=== PATIENT | female | born 1950 | race Caucasian/White ===

== ENCOUNTER 2018-10-23 11:34 | Day surgery (SDC) | payer MEDICARE ==
[~2018-10-23] VITALS: Ht 161.3 cm; Wt 45.3 kg
[2018-10-23 12:22] VITALS: BP 148/93
[2018-10-23] MEDS ORDERED: LACTATED RINGERS 1,000 ML IV SCH (12:27)
[2018-10-23] MEDS ORDERED: TRIA1TAB3 PO (12:30)
[2018-10-23] MEDS ORDERED: METO25TA35 PO (12:30)
[2018-10-23] MEDS ORDERED: SIMV20TA3 PO (12:30)
[2018-10-23] MEDS ORDERED: PROPOFOL 10 MG/ML, 20ML ONE (14:33)
[2018-10-23] MEDS ORDERED: PHENYLEPHRINE 10 MG/ML ONE (14:33)
[2018-10-23] MEDS ORDERED: SUCCINYLCHOLINE 20 MG/ML, 10ML ONE (14:33)
[2018-10-23] MEDS ORDERED: DEXAMETHASONE 4 MG/ML, 1ML ONE (14:33)
[2018-10-23] MEDS ORDERED: ONDANSETRON 2MG/ML, 2ML ONE (14:33)
[2018-10-23] MEDS ORDERED: HYDROmorphone 2 MG/ML, 1ML IVPush PRN (17:30)
[2018-10-23] MEDS ORDERED: FENTANYL PF 100 MCG/2ML IV PRN (17:30)
[2018-10-23] MEDS ORDERED: OXYcodone 5 MG/5 ML ORAL.SOL UDC PO PRN (17:30)
[2018-10-23] MEDS ORDERED: hydrALAzine 20 MG/ML, 1ML IV PRN (17:30)
[2018-10-23] MEDS ORDERED: HALOPERIDOL 5 MG/ML IV PRN (17:30)
[2018-10-23] MEDS ORDERED: PROMETHAZINE 25 MG/ML, 1ML IV PRN (17:30)
== END 2018-10-23 18:30 | disposition home or self-care (01) ==
LOC: OUT 11:34
PROVIDERS: ATTEND Internal Medicine Geriatric Medicine
DX: C22.1 Intrahepatic bile duct carcinoma (principal); K83.1 Obstruction of bile duct; K83.8 Other specified diseases of biliary tract; E78.5 Hyperlipidemia, unspecified; I10 Essential (primary) hypertension; Z72.89 Other problems related to lifestyle; Z87.891 Personal history of nicotine dependence; Z88.6 Allergy status to analgesic agent; Z98.890 Other specified postprocedural states
CPT/HCPCS: 43237; 43261; 43274; 74328; 88112; 88172; 88173; 88305; 88333; 88334; 93005; C1769; C1894; C2625; J0330; J1100; J2370; J2405; J2704

== ENCOUNTER 2018-10-27 11:28 | Inpatient (IN) | payer MEDICARE ==
[~2018-10-27] VITALS: Ht 154.9 cm; Wt 52.7 kg
[~2018-10-27 11:28] MED LIST: FENTANYL PF 100 MCG/2ML ONE; LIDOCAINE-MPF 2% ,5ML ONE; MEPERIDINE/PF 50 MG/ML ONE; METO25TA35 PO; MIDAZOLAM 1 MG/ML, 2ML ONE; PROPOFOL 10 MG/ML, 20ML ONE; SIMV20TA3 PO; SUCCINYLCHOLINE 20 MG/ML, 10ML ONE; TRIA1TAB3 PO
[2018-10-27] MEDS ORDERED: ONDANSETRON 2MG/ML, 2ML IVPush ONE (12:00)
[2018-10-27] MEDS ORDERED: SODIUM CHLORIDE FLUSH 10ML SYR IVF ONE (12:00)
[2018-10-27] MEDS ORDERED: SODIUM CHLORIDE 0.9% 1,000ML IVBOLUS ONE (12:00)
[2018-10-27 12:09] LABS: ALANINE AMINOTRANSFERASE 456 U/L (12-78); ALBUMIN 3.5 g/dL (3.4-5.0); ANION GAP 10 mmol/L (5-15); CALCIUM 9.9 mg/dL (8.5-10.1); CHLORIDE 95 mmol/L (98-107); CREATININE 1.12 mg/dL (0.55-1.02)
[2018-10-27 12:11] LABS: ALKALINE PHOSPHATASE 482 U/L (45-117); BILIRUBIN,TOTAL 1.1 mg/dL (0.2-1.0); TOTAL PROTEIN 7.7 g/dL (6.4-8.2)
[2018-10-27 12:23] LABS: BASOPHILS % (AUTO) 0 % (0-1); EOSINOPHILS # (AUTO) 0.02 x10^3/uL (0-0.4); EOSINOPHILS % (AUTO) 0 % (1-7); LYMPHOCYTES # (AUTO) 0.84 x10^3/uL (1-3.4); LYMPHOCYTES % (AUTO) 7 % (22-44); MD NO; MEAN CORPUSCULAR HEMOGLOBIN 30.5 pg (27.0-34.8); MEAN CORPUSCULAR HGB CONC 34.2 g/dL (32.4-35.8); MEAN CORPUSCULAR VOLUME 89.3 fL (80-100); MEAN PLATELET VOLUME 9.6 fL (7.4-10.4); MONOCYTES # (AUTO) 0.87 x10^3/uL (0.2-0.8); MONOCYTES % (AUTO) 7 % (2-9); NEUTROPHILS # (AUTO) 10.96 x10^3/uL (1.8-6.8); NEUTROPHILS % (AUTO) 86 % (42-75); PLATELET COUNT 324 x10^3/uL (130-400); RED BLOOD COUNT 4.54 x10^6/uL (3.82-5.3); RED CELL DISTRIBUTION WIDTH 14.7 % (9.6-15.2)
[2018-10-27] MEDS ORDERED: NS + 40MEQ KCL 1,000 ML IV ONE ×2 (12:31→12:53)
--- NOTE | 2018-10-27 12:45 | NUR ---
PT ARRIVES TO ED WITH EPIGASTRIC AND PERIUMBILICUS PAIN. PT REPORTS THAT HER APPETITIE HAS BEEN DOWN FOR 4 DAYS. PT REPORTS SOME WIEGHT LOSS PRESENT BUT UNSURE OF [place]. PT DENIES ANY ANGELIKA OR TARRY STOOLS. NO EMESIS. PT IS TENDER TO ABD PALPATION. RECENTLY HAS A CBD STENT FOR POSSIBLE CANCEROUS MASS. PT VITALS ARE STABLE OTHERWISE. RESTING IN [facility] AT THIS TIME AWAITING FURTHER ORDERS.
--- NOTE | 2018-10-27 13:05 | NUR ---
PIV PLACED ON BI-FUSE FOR NS BOLUS AND NSK+.
--- NOTE | 2018-10-27 13:37 | NUR ---
PT GIVEN WARM BLANKET FOR COMFORT.
--- NOTE | 2018-10-27 14:29 | NUR ---
REPORT CALLED TO [facility].
[2018-10-27] MEDS ORDERED: ACETAMINOPHEN 325 MG TABLET PO PRN (14:30)
[2018-10-27] MEDS ORDERED: morphine SULFATE 10 MG/ML, 1ML IVPush PRN (14:30)
[2018-10-27] MEDS ORDERED: LABETALOL 5MG/ML, 20ML IVPush PRN (14:30)
[2018-10-27] MEDS ORDERED: ONDANSETRON 2MG/ML, 2ML IVPush PRN (14:30)
[2018-10-27] MEDS ORDERED: ONDANSETRON ODT 4 MG PO PRN (14:30)
[2018-10-27 15:42] VITALS: BP 150/81
[2018-10-27 15:48] VITALS: BP 150/81
[2018-10-27] MEDS: CEFOTETAN PMX 2GM/50ML 50 ML IV SCH (16:38)
[2018-10-27] MEDS: NS + 20MEQ KCL 1,000 ML IV SCH (16:38)
[2018-10-27 19:45] VITALS: BP 151/77
[2018-10-27] MEDS: METOPROLOL TARTRATE 25 MG TABLET PO SCH (20:26)
[2018-10-27] MEDS: TEMAZEPAM 15 MG CAPSULE PO PRN (20:31)
[2018-10-27] MEDS: FAMOTIDINE 20 MG/2 ML IVPush SCH (20:38)
[2018-10-28 00:04] VITALS: BP 123/76
[2018-10-28] MEDS: NS + 20MEQ KCL 1,000 ML IV SCH ×3 (02:12→23:25)
[2018-10-28] MEDS: CEFOTETAN PMX 2GM/50ML 50 ML IV SCH ×2 (03:54→15:58)
[2018-10-28 05:18] LABS: BASOPHILS # (AUTO) 0.05 x10^3/uL (0-0.1); BASOPHILS % (AUTO) 1 % (0-1); EOSINOPHILS # (AUTO) 0.13 x10^3/uL (0-0.4); EOSINOPHILS % (AUTO) 2 % (1-7); LYMPHOCYTES # (AUTO) 1.37 x10^3/uL (1-3.4); LYMPHOCYTES % (AUTO) 20 % (22-44); MD NO; MEAN CORPUSCULAR HEMOGLOBIN 30.9 pg (27.0-34.8); MEAN CORPUSCULAR HGB CONC 34.3 g/dL (32.4-35.8); MEAN CORPUSCULAR VOLUME 90.1 fL (80-100); MEAN PLATELET VOLUME 9.4 fL (7.4-10.4); MONOCYTES # (AUTO) 0.62 x10^3/uL (0.2-0.8); MONOCYTES % (AUTO) 9 % (2-9); NEUTROPHILS # (AUTO) 4.61 x10^3/uL (1.8-6.8); NEUTROPHILS % (AUTO) 68 % (42-75); PLATELET COUNT 231 x10^3/uL (130-400); RED BLOOD COUNT 3.43 x10^6/uL (3.82-5.3)
[2018-10-28 05:25] LABS: ALBUMIN 2.4 g/dL (3.4-5.0); ANION GAP 9 mmol/L (5-15); CALCIUM 8.7 mg/dL (8.5-10.1); CHLORIDE 109 mmol/L (98-107)
[2018-10-28 05:29] LABS: HEMOGLOBIN A1C 5.8 % (4.2-6.3)
[2018-10-28 05:30] LABS: ALANINE AMINOTRANSFERASE 233 U/L (12-78); ALKALINE PHOSPHATASE 303 U/L (45-117); BILIRUBIN,TOTAL 0.5 mg/dL (0.2-1.0); CREATININE 1.62 mg/dL (0.55-1.02); TOTAL PROTEIN 5.5 g/dL (6.4-8.2)
[2018-10-28 06:40] VITALS: BP 148/70
[2018-10-28] MEDS: FAMOTIDINE 20 MG/2 ML IVPush SCH ×2 (08:53→20:08)
[2018-10-28] MEDS: METOPROLOL TARTRATE 25 MG TABLET PO SCH ×2 (08:53→20:04)
[2018-10-28] MEDS: NEUTRA PHOS K 250 MG TABLET PO SCH ×2 (09:50→20:04)
[2018-10-28 12:33] VITALS: BP 143/85
[2018-10-28 14:56] LABS: MICROSCOPIC NOT IND
[2018-10-28 15:00] LABS: CULTURE INDICATED? NO
[2018-10-28 18:35] VITALS: BP 152/73
[2018-10-28] MEDS: TEMAZEPAM 15 MG CAPSULE PO PRN (20:08)
[2018-10-29 01:09] VITALS: BP 146/68
[2018-10-29] MEDS: CEFOTETAN PMX 2GM/50ML 50 ML IV SCH ×2 (03:50→15:51)
[2018-10-29 05:58] LABS: BASOPHILS # (AUTO) 0.06 x10^3/uL (0-0.1); BASOPHILS % (AUTO) 1 % (0-1); EOSINOPHILS # (AUTO) 0.19 x10^3/uL (0-0.4); EOSINOPHILS % (AUTO) 3 % (1-7); LYMPHOCYTES # (AUTO) 1.43 x10^3/uL (1-3.4); LYMPHOCYTES % (AUTO) 24 % (22-44); MD NO; MEAN CORPUSCULAR HEMOGLOBIN 30.1 pg (27.0-34.8); MEAN CORPUSCULAR HGB CONC 33.2 g/dL (32.4-35.8); MEAN CORPUSCULAR VOLUME 90.8 fL (80-100); MEAN PLATELET VOLUME 9.5 fL (7.4-10.4); MONOCYTES # (AUTO) 0.61 x10^3/uL (0.2-0.8); MONOCYTES % (AUTO) 10 % (2-9); NEUTROPHILS # (AUTO) 3.55 x10^3/uL (1.8-6.8); NEUTROPHILS % (AUTO) 61 % (42-75); PLATELET COUNT 233 x10^3/uL (130-400); RED BLOOD COUNT 3.48 x10^6/uL (3.82-5.3); RED CELL DISTRIBUTION WIDTH 15.2 % (9.6-15.2)
[2018-10-29 06:12] LABS: ALBUMIN 2.3 g/dL (3.4-5.0); ANION GAP 7 mmol/L (5-15); CALCIUM 8.2 mg/dL (8.5-10.1); CHLORIDE 112 mmol/L (98-107)
[2018-10-29 06:15] LABS: ALANINE AMINOTRANSFERASE 166 U/L (12-78); ALKALINE PHOSPHATASE 263 U/L (45-117); BILIRUBIN,TOTAL 0.8 mg/dL (0.2-1.0); CREATININE 1.54 mg/dL (0.55-1.02); TOTAL PROTEIN 5.3 g/dL (6.4-8.2)
[2018-10-29 06:29] VITALS: BP 145/81
[2018-10-29] MEDS: NEUTRA PHOS K 250 MG TABLET PO SCH ×2 (08:35→20:08)
[2018-10-29] MEDS: METOPROLOL TARTRATE 25 MG TABLET PO SCH ×2 (08:36→20:08)
[2018-10-29] MEDS: NS + 20MEQ KCL 1,000 ML IV SCH ×2 (10:54→20:09)
[2018-10-29 12:02] VITALS: BP 145/78
[2018-10-29 19:30] VITALS: BP 146/74
[2018-10-29] MEDS: FAMOTIDINE 20 MG/2 ML IVPush SCH (20:08)
[2018-10-29] MEDS: TEMAZEPAM 15 MG CAPSULE PO PRN (20:08)
[2018-10-30 01:47] VITALS: BP 148/78
[2018-10-30] MEDS: CEFOTETAN PMX 2GM/50ML 50 ML IV SCH (03:36)
[2018-10-30 06:25] VITALS: BP 164/90
[2018-10-30] MEDS: NEUTRA PHOS K 250 MG TABLET PO SCH ×2 (07:00→19:52)
[2018-10-30] MEDS: NS + 20MEQ KCL 1,000 ML IV SCH (07:53)
[2018-10-30 07:59] VITALS: BP 168/90
[2018-10-30] MEDS ORDERED: ACETAMINOPHEN 325 MG TABLET PO PRN (08:00)
[2018-10-30] MEDS ORDERED: FENTANYL PF 100 MCG/2ML ONE (10:48)
[2018-10-30] MEDS ORDERED: MIDAZOLAM 1 MG/ML, 2ML ONE (11:26)
[2018-10-30] MEDS ORDERED: FENTANYL PF 250 MCG/5ML ONE (11:27)
[2018-10-30] MEDS ORDERED: ONDANSETRON 2MG/ML, 2ML ONE (12:02)
[2018-10-30] MEDS ORDERED: DEXAMETHASONE 4 MG/ML, 1ML ONE (12:02)
[2018-10-30] MEDS ORDERED: METOPROLOL 1 MG/ML, 5ML IV PRN (13:00)
[2018-10-30] MEDS ORDERED: MEPERIDINE/PF 25MG/0.5ML IVPush PRN (13:00)
[2018-10-30] MEDS ORDERED: OXYcodone 5 MG/5 ML ORAL.SOL UDC PO PRN (13:00)
[2018-10-30] MEDS ORDERED: MIDAZOLAM 1 MG/ML, 2ML IV PRN (13:00)
[2018-10-30] MEDS ORDERED: FENTANYL PF 100 MCG/2ML IV PRN (13:00)
[2018-10-30] MEDS ORDERED: PROMETHAZINE 25 MG/ML, 1ML IV PRN (13:00)
[2018-10-30] MEDS ORDERED: ONDANSETRON 2MG/ML, 2ML IV PRN (13:00)
[2018-10-30] MEDS ORDERED: hydrALAzine 20 MG/ML, 1ML IV PRN (13:00)
[2018-10-30] MEDS ORDERED: ALBUTEROL/IPRATROPIUM 2.5MG/0.5MG, 3 ML NPPB PRN (13:00)
[2018-10-30] MEDS ORDERED: hydrALAzine 20 MG/ML, 1ML ONE (13:16)
[2018-10-30 15:37] VITALS: BP 146/80
[2018-10-30 16:10] VITALS: BP 157/84
[2018-10-30] MEDS: CARVEDILOL 6.25 MG TABLET PO SCH (17:51)
[2018-10-30 19:15] VITALS: BP 149/73
[2018-10-30] MEDS: FAMOTIDINE 20 MG/2 ML IVPush SCH (19:51)
[2018-10-30] MEDS: TEMAZEPAM 15 MG CAPSULE PO PRN (22:17)
[2018-10-31 02:47] VITALS: BP 142/67
[2018-10-31] MEDS ORDERED: CEFOTETAN PMX 2GM/50ML 50 ML IV SCH (03:00)
[2018-10-31] MEDS: NS + 20MEQ KCL 1,000 ML IV SCH (03:07)
[2018-10-31] MEDS: CARVEDILOL 6.25 MG TABLET PO SCH ×2 (05:11→17:54)
[2018-10-31 06:41] LABS: ANION GAP 5 mmol/L (5-15); CHLORIDE 109 mmol/L (98-107); CREATININE 1.26 mg/dL (0.55-1.02)
[2018-10-31] MEDS: NEUTRA PHOS K 250 MG TABLET PO SCH ×2 (07:34→20:32)
[2018-10-31 07:35] VITALS: BP 161/74
[2018-10-31] MEDS: HEPARIN 5,000 UNITS/ML, 1ML SQ SCH ×2 (09:36→20:32)
[2018-10-31] MEDS: SODIUM CHLORIDE 0.9% 1,000 ML IV SCH (09:36)
[2018-10-31] MEDS ORDERED: ACET325T14 PO ×2 (10:38)
[2018-10-31] MEDS ORDERED: CARV6.2512 PO (10:38)
[2018-10-31] MEDS: OXYcodone/APAP 5/325MG TABLET PO PRN ×2 (13:53→20:32)
[2018-10-31 17:51] VITALS: BP 152/74
[2018-10-31] MEDS: CEFOTETAN PMX 2GM/50ML 50 ML IV SCH (17:53)
[2018-10-31 19:55] VITALS: BP 150/74
[2018-10-31] MEDS: FAMOTIDINE 20 MG/2 ML IVPush SCH (20:32)
[2018-10-31] MEDS: TEMAZEPAM 15 MG CAPSULE PO PRN (20:32)
[2018-11-01 01:32] VITALS: BP 133/78
[2018-11-01] MEDS: SODIUM CHLORIDE 0.9% 1,000 ML IV SCH ×2 (01:59→19:59)
[2018-11-01] MEDS: CARVEDILOL 6.25 MG TABLET PO SCH ×2 (05:02→17:13)
[2018-11-01] MEDS: CEFOTETAN PMX 2GM/50ML 50 ML IV SCH ×2 (05:02→17:13)
[2018-11-01 08:00] VITALS: BP 158/81
[2018-11-01] MEDS: HEPARIN 5,000 UNITS/ML, 1ML SQ SCH ×2 (08:23→19:59)
[2018-11-01] MEDS: NEUTRA PHOS K 250 MG TABLET PO SCH ×2 (08:23→19:59)
[2018-11-01 13:59] VITALS: BP 166/77
[2018-11-01 18:55] VITALS: BP 151/65
[2018-11-01] MEDS: OXYcodone/APAP 5/325MG TABLET PO PRN (19:08)
[2018-11-01] MEDS: FAMOTIDINE 20 MG/2 ML IVPush SCH (19:59)
[2018-11-02 01:17] VITALS: BP 130/73
[2018-11-02 05:34] VITALS: BP 168/73
[2018-11-02] MEDS: CARVEDILOL 6.25 MG TABLET PO SCH (05:36)
[2018-11-02] MEDS: CEFOTETAN PMX 2GM/50ML 50 ML IV SCH (05:36)
[2018-11-02 06:23] LABS: CHLORIDE 109 mmol/L (98-107)
[2018-11-02 06:47] LABS: ALANINE AMINOTRANSFERASE 339 U/L (12-78); ALKALINE PHOSPHATASE 299 U/L (45-117); ANION GAP 8 mmol/L (5-15); BILIRUBIN,TOTAL 2.3 mg/dL (0.2-1.0); CALCIUM 8.3 mg/dL (8.5-10.1); CREATININE 0.75 mg/dL (0.55-1.02); TOTAL PROTEIN 5.3 g/dL (6.4-8.2)
[2018-11-02 08:00] VITALS: BP 130/73
[2018-11-02] MEDS: HEPARIN 5,000 UNITS/ML, 1ML SQ SCH (08:29)
[2018-11-02] MEDS: NEUTRA PHOS K 250 MG TABLET PO SCH (08:29)
[2018-11-02] MEDS ORDERED: OMNIPAQUE 350 MG/ML, 100ML BOTTLE ONE (09:40)
[2018-11-02] MEDS ORDERED: OXYC5TAB2 PO (11:32)
[2018-11-02] MEDS ORDERED: AMLO10TA8 PO (11:32)
== END 2018-11-02 13:15 | disposition home or self-care (01) | DRG 435 ==
LOC: ED 13:16 → EDIP 13:29 → 4EST 15:13 → 4WST 10-30 14:28 → DCLOUNGE 11-02 13:00
PROVIDERS: ADMIT Hospitalist; ATTEND Hospitalist
PROC: 0FB94ZX Excision of Common Bile Duct, Percutaneous Endoscopic Approach, Diagnostic (ICD-10-PCS; principal; 2018-10-30 11:15)
DX: C22.1 Intrahepatic bile duct carcinoma (principal); K85.90 Acute pancreatitis without necrosis or infection, unspecified; K80.21 Calculus of gallbladder without cholecystitis with obstruction; N17.9 Acute kidney failure, unspecified; E87.1 Hypo-osmolality and hyponatremia; I10 Essential (primary) hypertension; E78.5 Hyperlipidemia, unspecified; E87.6 Hypokalemia; F12.90 Cannabis use, unspecified, uncomplicated; K75.9 Inflammatory liver disease, unspecified; Z80.7 Family history of other malignant neoplasms of lymphoid, hematopoietic and related tissues; Z87.891 Personal history of nicotine dependence; Z85.05 Personal history of malignant neoplasm of liver; Z88.8 Allergy status to other drugs, medicaments and biological substances
CPT/HCPCS: 36415; 71260; 74181; 76700; 80048; 80053; 81003; 83036; 83690; 83735; 84100; 85025; 86301; 87040; 88172; 88173; 88177; 88305; 99285; G0378; J1100; J1644; J2175; J2250; J2405; J2704; J3010; J3480; J3490; Q9967; J0330; J0360; J7030